=== PATIENT | female | born 1950 | race Hispanic/Latino ===

== ENCOUNTER → 2020-11-25 | Outpatient (CLI) | payer OTHER | END | disposition home or self-care (01) | LOC: RAH 10:30 | PROVIDERS: ATTEND Internal Medicine Gastroenterology | DX: K21.9 Gastro-esophageal reflux disease without esophagitis (principal); F45.8 Other somatoform disorders | CPT/HCPCS: 74230; 92611 ==

== ENCOUNTER → 2023-12-27 | Outpatient (CLI) | payer OTHER | END | disposition home or self-care (01) | LOC: RAH 13:40 | PROVIDERS: ATTEND Internal Medicine Cardiovascular Disease | DX: Z13.6 Encounter for screening for cardiovascular disorders (principal) | CPT/HCPCS: 75571 ==

== ENCOUNTER → 2024-02-23 | Outpatient (CLI) | payer OTHER ==
[2024-02-23 12:47] LABS: ALBUMIN 3.7 g/dL (3.5-5.0); BILIRUBIN,TOTAL 0.5 mg/dL (0.2-1.0); CREATININE 0.8 mg/dL (0.5-1.0); POTASSIUM 3.9 mmol/L (3.5-5.1); TOTAL PROTEIN, SERUM 7.7 g/dL (6.0-8.3)
== END | disposition home or self-care (01) ==
LOC: LAB 08:25
PROVIDERS: ATTEND Internal Medicine Cardiovascular Disease
DX: I10 Essential (primary) hypertension (principal)
CPT/HCPCS: 36415; 80053

== ENCOUNTER → 2024-03-01 | Outpatient (CLI) | payer OTHER ==
[~2024-03-01] MED LIST: IOHEXOL 350 MG/ML 100ML INFUS..BTL IV ONE; NITROGLYCERIN 4.1 GM SPRAY TL ONE; metoPROLOL tartRATE 1 MG/ML 5ML VIAL IV ONE
== END | disposition home or self-care (01) ==
LOC: RAH 12:26
PROVIDERS: ATTEND Internal Medicine Cardiovascular Disease
DX: I25.10 Atherosclerotic heart disease of native coronary artery without angina pectoris (principal)
CPT/HCPCS: 75574; J3490 ×2; Q9967 ×2

== ENCOUNTER 2024-06-04 07:12 | Day surgery (SDC) | payer OTHER ==
--- NOTE | 2024-06-01 08:26 | EKG ---
[facility] Test Date: 2024-06-01 Test Time: 09:10:51 Pat Name: TIM COOPER Department: [facility] Room: Gender: F Sole Tier: [id number] : 1950 Requested By: Khris ELIZABETH Order Number: [id number] Reading MD: Ricky Sanchez Measurements Intervals [place] Rate: 57 P: -27 NM: 147 QRS: 28 QRSD: 102 T: 28 QT: 445 QTc: 436 Interpretive Statements Sinus rhythm Inferior infarct, old No previous ECG available for comparison Electronically Signed On 06-02-2024 17:14:28 [employer] by Ricky Sanchez Please click the below link to view image of tracing.
[2024-06-01 08:27] LABS: BASOPHILS # (AUTO) 0.04 K/uL (0.00-0.20); BASOPHILS % (AUTO) 0.5 % (0.0-5.0); EOSINOPHILS # (AUTO) 0.16 K/uL (0.00-0.70); HEMATOCRIT 40.7 % (36-48); IMMATURE GRANULOCYTE ABSOLUTE 0.03 K/uL (0-1); LYMPHOCYTES # (AUTO) 2.4 K/uL (1.0-4.8); LYMPHOCYTES % (AUTO) 31.2 % (21.0-51.0); MEAN CORPUSCULAR HEMOGLOBIN 29.2 pg (27.0-33.0); MEAN CORPUSCULAR HGB CONC 33.2 g/dL (32.0-36.0); MEAN CORPUSCULAR VOLUME 87.9 fL (79-99); MONOCYTES # (AUTO) 0.5 K/uL (0.1-1.0); MONOCYTES % (AUTO) 6.8 % (3.0-13.0); NEUTROPHILS # (AUTO) 4.6 K/uL (1.8-7.7); NEUTROPHILS % (AUTO) 59.1 % (40.0-77.0); PLATELET COUNT (AUTO) 250 K/uL (130-400); RED BLOOD CELL COUNT(AUTO) 4.63 MIL/uL (4.00-5.50); RED CELL DISTRIBUTION WIDTH 12.9 % (11.0-15.5); WHITE BLOOD COUNT (AUTO) 7.8 K/uL (4.8-10.8)
[2024-06-01 08:36] LABS: INR 0.97 (0.85-1.15); PROTHROMBIN TIME 10.9 SEC (9.6-11.6)
[2024-06-01 08:37] LABS: PARTIAL THROMBOPLASTIN TIME 27.3 SEC (26.3-35.5)
[2024-06-01 08:40] LABS: APPEARANCE,URINE CLEAR (CLEAR); BILIRUBIN,URINE NEGATIVE (NEGATIVE); COLOR,URINE LIGHT-YELLOW (YELLOW); GLUCOSE, URINE (UA) NEGATIVE (NEGATIVE); KETONES,URINE NEGATIVE (NEGATIVE); LEUKOCYTE ESTERASE ,URINE 500 Leu/uL (NEGATIVE); NITRATE,URINE NEGATIVE (NEGATIVE); PROTEIN,URINE NEGATIVE (NEGATIVE); UROBILINOGEN,URINE 0.2 mg/dL (0.2-1.0)
[2024-06-01 08:46] LABS: CREATININE 0.7 mg/dL (0.5-1.0); POTASSIUM 4.1 mmol/L (3.5-5.1)
[2024-06-01 08:48] VITALS: BP 159/77; PULSE 56; RESP 16; TEMP 97.3
[2024-06-01 08:48] LABS: ADD UA MICROSCOPIC YES
[2024-06-01 08:55] LABS: B-TYPE NATRIURETIC PEPTIDE 39 pg/mL (0-100)
[2024-06-01 09:45] LABS: BACTERIA,URINE RARE /HPF (None Seen); MUCUS,URINE RARE LPF (None Seen); OTHER CASTS, URINE 1 /LPF (None Seen); SQUAMOUS EPITHELIAL CELL,UR FEW /HPF (0-2)
--- NOTE | 2024-06-01 10:27 | HMCIMG ---
CHEST 1VW REASON: PRE OP COMPARISON: None. FINDINGS: Single view of the chest was obtained. Lungs are clear. Heart size is normal. There is no pulmonary vascular congestion. Mediastinum and bony thorax appear unremarkable. IMPRESSION: 1. Normal single view chest x-ray.
--- NOTE | 2024-06-01 11:25 | NUR ---
REPORTED US RESULTS TO GERMAIN HILTON NP. OK TO PROCEED
[~2024-06-04] VITALS: Ht 152.4 cm; Wt 73.3 kg
[2024-06-04] VITALS (9 sets, daily range): BP systolic 108–170; BP diastolic 58–89; PULSE 53–60; RESP 14–18; TEMP 97.3–97.9
[~2024-06-04 07:12] MED LIST changes: +ALEN70TA80 PO; +AMLO-257 PO; +ATOR10 PO; +FLUT16H NASAL; -IOHEXOL 350 MG/ML 100ML INFUS..BTL IV ONE; +LORA10TA7 PO; +METF-444 PO; -NITROGLYCERIN 4.1 GM SPRAY TL ONE; +VALS160T29 PO; -metoPROLOL tartRATE 1 MG/ML 5ML VIAL IV ONE
[2024-06-04] MEDS: 0.9%NACL 1000ML 1,000 ML IV SCH (12:00)
[2024-06-04] MEDS ORDERED: IOHEXOL 350 MG/ML 100ML INFUS..BTL IV ONE (15:14)
[2024-06-04] MEDS ORDERED: LIDOCAINE HCL 1% MDV 50ML VIAL ONE (15:14)
[2024-06-04] MEDS ORDERED: HEParin-NS 1,000 UNIT/500 ML 1,000 ML IV ONE (15:15)
[2024-06-04] MEDS ORDERED: NITROGLYCERIN 50MG VIAL ONE (15:15)
[2024-06-04] MEDS ORDERED: HEParin 10,000 UNIT/10ML (1,000 UNIT/ML) VIAL ONE (15:51)
[2024-06-04] MEDS ORDERED: MIDAZOLAM HCL 1 MG/ML 2ML VIAL ONE ×2 (15:52→16:07)
[2024-06-04] MEDS ORDERED: MEPERIDINE-PF 50 MG/ML SYG ONE (15:52)
[2024-06-04] MEDS ORDERED: IOHEXOL-350 50ML VIAL IV ONE (16:30)
[2024-06-04] MEDS ORDERED: 0.9%NACL 1000ML 1,000 ML IV SCH (17:00)
[2024-06-04] MEDS ORDERED: GLUCAGON 1MG KIT 1 MG ML IM PRN (17:00)
[2024-06-04] MEDS ORDERED: DEXTROSE 50%-WATER 50 ML DISP.SYRIN IV PRN (17:00)
--- NOTE | 2024-06-04 18:00 | NUR ---
RE: VASC BAND VASC BAND IN PLACE TO LEFT WRIST, S/P LHC. NO BLEEDING/HEMATOMA OR DRAINAGE NOTED. 2ML AIR REMOVED FROM VASC BAND, PATIENT TOLERATED WELL. NO BLEEDING NOTED.
--- NOTE | 2024-06-04 18:30 | NUR ---
RE: VASC BAND VASC BAND IN PLACE TO LEFT WRIST, S/P LHC. NO BLEEDING/HEMATOMA OR DRAINAGE NOTED. 2ML AIR REMOVED FROM VASC BAND, PATIENT TOLERATED WELL. NO BLEEDING NOTED OR HEMATOMA.
--- NOTE | 2024-06-04 19:10 | NUR ---
RE: VASC BAND VASC BAND IN PLACE TO LEFT WRIST, S/P LHC. NO BLEEDING/HEMATOMA OR DRAINAGE NOTED. 2ML AIR REMOVED FROM VASC BAND, PATIENT TOLERATED WELL. NO BLEEDING NOTED. VASC BAND REMOVED. COVERED WITH STERILE GAUZE AND SECURED WITH TEGADERM. NO BLEEDING OR HEMATOMA NOTED.
--- NOTE | 2024-06-04 19:34 | CCATH ---
PROCEDURES: * Left heart catheterization. * Selective right and left coronary arteriogram. * Left ventriculogram. * Conscious sedation for 30 minutes. INDICATIONS: * Recurrent anginal symptoms. * Elevated coronary calcium score. * Abnormal coronary CT angiogram. COMPLICATIONS: None. TOTAL CONTRAST: 60. APPROACH: Right radial approach. DESCRIPTION OF PROCEDURE: The patient was taken to the cardiac catheterization lab after the appropriate operative consents were signed. She was prepped and draped in the usual fashion. Conscious sedation was administered. The right radial artery was accessed and a 6-Serbian slender sheath was advanced in retrograde fashion by the modified Seldinger technique. Attempts at advancing the wire were somewhat challenging. The patient had a tortuous radial artery; however, we utilized a soft Glidewire that helped us traverse the area of tortuosity. This was followed by advancement of a TIG 4 catheter. The catheter was positioned in the aortic root and then placed in the left ventricular cavity over a J-wire. Left ventricular end-diastolic pressure measurement was obtained. Pullback revealed no aortic stenosis. A pigtail catheter was then placed in the left ventricular cavity and left ventricular angiography was performed in UMAÑA projection. This revealed the hyperdynamic ventricle with ejection fraction of more than 80%. There was no MR. No was noted on pullback once more. The TIG 4 catheter was engaged in the ostium of the right coronary artery. This was imaged in multiplane. This was a moderately sized vessel that gave rise to an acute marginal PDA and a small branching PLVB. There were no significant stenotic lesions. The catheter was then redirected and engaged in the ostium of the left main. Left main was imaged in multiplane. This was a large vessel that was free of disease. Bifurcated into an LAD and circumflex. The LAD was a large vessel that gave rise to several diagonals and septal perforators. There was an area of calcification in the proximal segment with a stenotic lesion estimated at 40% luminal narrowing. There were no other significant lesions. Circumflex was a large vessel that gave rise to several marginal branches and ongoing circ. Circ system was free of disease. At this point, the procedure was completed, the catheter was withdrawn over an indwelling wire. A radial band was applied. The patient tolerated the procedure well, left the cardiac catheterization lab in stable condition. FINAL IMPRESSION: * Nonobstructive coronary artery disease with a 40% proximal left anterior descending stenotic calcified lesion. * Hyperdynamic ventricle. PLAN: Medical management. TID: [id number] RECEIPT: [id number]
--- NOTE | 2024-06-04 19:50 | NUR ---
PATIENT DISCHARGED FROM FACILITY VIA WHEELCHAIR BY NURSE AND ASSISTED INTO PRIVATE VEHICLE DRIVEN BY SON
[2024-06-04] MEDS ORDERED: INSULIN humuLIN R 100 UNIT/ML 3ML SQ SCH (21:00)
== END 2024-06-04 19:55 | disposition home or self-care (01) ==
LOC: DAH 07:12
PROVIDERS: ATTEND Internal Medicine Cardiovascular Disease
DX: R93.1 Abnormal findings on diagnostic imaging of heart and coronary circulation (principal); I25.118 Atherosclerotic heart disease of native coronary artery with other forms of angina pectoris; I10 Essential (primary) hypertension; R06.02 Shortness of breath; E78.5 Hyperlipidemia, unspecified; I25.84 Coronary atherosclerosis due to calcified coronary lesion; E11.9 Type 2 diabetes mellitus without complications; I25.83 Coronary atherosclerosis due to lipid rich plaque; G47.33 Obstructive sleep apnea (adult) (pediatric); E66.9 Obesity, unspecified; Z68.32 Body mass index [BMI] 32.0-32.9, adult; Z90.710 Acquired absence of both cervix and uterus; Z90.49 Acquired absence of other specified parts of digestive tract; Z79.899 Other long term (current) drug therapy; Z79.84 Long term (current) use of oral hypoglycemic drugs
CPT/HCPCS: 80048; 83880; 85025; 85610; 85730; 87086; 81001; 36415; 71045; 93005; 93458; 82948 ×2; Q9965; C1769 ×2; A4649; C1894; J7030; J1644 ×2; J2250 ×2; J2175; J3490 ×2; Q9967 ×2; A4215; A4222; A4221; A4663; A4216; A4606; A4223 ×3; 99156; 99157

== ENCOUNTER → 2024-06-12 | Outpatient (CLI) | payer OTHER ==
[~2024-06-12] MED LIST changes: -VALS160T29 PO
[2024-06-12 12:17] LABS: BASOPHILS # (AUTO) 0.05 K/uL (0.00-0.20); BASOPHILS % (AUTO) 0.6 % (0.0-5.0); EOSINOPHILS # (AUTO) 0.18 K/uL (0.00-0.70); EOSINOPHILS % (AUTO) 2.2 % (0.0-8.0); HEMATOCRIT 39.8 % (36-48); IMMATURE GRANULOCYTE ABSOLUTE 0.05 K/uL (0-1); LYMPHOCYTES # (AUTO) 2.4 K/uL (1.0-4.8); LYMPHOCYTES % (AUTO) 29.6 % (21.0-51.0); MEAN CORPUSCULAR HEMOGLOBIN 28.6 pg (27.0-33.0); MEAN CORPUSCULAR HGB CONC 32.2 g/dL (32.0-36.0); MEAN CORPUSCULAR VOLUME 88.8 fL (79-99); MONOCYTES # (AUTO) 0.6 K/uL (0.1-1.0); MONOCYTES % (AUTO) 6.9 % (3.0-13.0); NEUTROPHILS # (AUTO) 4.9 K/uL (1.8-7.7); NEUTROPHILS % (AUTO) 60.1 % (40.0-77.0); PLATELET COUNT (AUTO) 244 K/uL (130-400); RED BLOOD CELL COUNT(AUTO) 4.48 MIL/uL (4.00-5.50); WHITE BLOOD COUNT (AUTO) 8.1 K/uL (4.8-10.8)
[2024-06-12 12:30] LABS: HEMOGLOBIN A1C 7.6 % (4.0-6.0)
[2024-06-12 12:49] LABS: ALBUMIN 3.6 g/dL (3.5-5.0); BILIRUBIN,TOTAL 0.4 mg/dL (0.2-1.0); CREATININE 0.6 mg/dL (0.5-1.0); POTASSIUM 4.3 mmol/L (3.5-5.1); T4 (THYROXINE) 7.2 ug/dL (4.7-13.3); THYROID STIMULATING HORMONE 2.48 uIU/mL (0.36-3.74); TOTAL PROTEIN, SERUM 7.5 g/dL (6.0-8.3)
== END | disposition home or self-care (01) ==
LOC: LAB 08:59
PROVIDERS: ATTEND Internal Medicine Cardiovascular Disease
DX: I10 Essential (primary) hypertension (principal); I25.10 Atherosclerotic heart disease of native coronary artery without angina pectoris; E11.9 Type 2 diabetes mellitus without complications; E78.5 Hyperlipidemia, unspecified
CPT/HCPCS: 36415; 80053; 80061; 83036; 84436; 84443; 84479; 85025

== ENCOUNTER → 2025-03-14 | Outpatient (CLI) | payer OTHER | END | disposition home or self-care (01) | LOC: RAH 10:50 | PROVIDERS: ATTEND Physician Assistant Medical | DX: Z12.31 Encounter for screening mammogram for malignant neoplasm of breast (principal) | CPT/HCPCS: 77067 ==